=== PATIENT | male | born 1985 | race Caucasian/White ===

== ENCOUNTER 2020-11-15 14:28 | Outpatient (RCR) | payer OTHER | END 2021-01-06 | disposition home or self-care (01) | LOC: WSOH | DX: M77.11 Lateral epicondylitis, right elbow (principal); F98.8 Other specified behavioral and emotional disorders with onset usually occurring in childhood and adolescence; Y99.0 Civilian activity done for income or pay ==

== ENCOUNTER → 2023-09-13 | Outpatient (CLI) | payer BC | LOC: COL.RAD 09:56 | DX: R79.89 Other specified abnormal findings of blood chemistry (principal) ==